=== PATIENT | male | born 1985 | race Caucasian/White ===

== ENCOUNTER 2017-08-02 19:30 | Emergency (ER) | payer BC ==
[~2017-08-02] VITALS: Ht 177.8 cm; Wt 93.2 kg
[2017-08-02 19:37] VITALS: TEMP 96.9
[2017-08-02] MEDS ORDERED: PREDNISONE20 MG PO (21:23)
[2017-08-02 21:30] VITALS: BP 149/90; PULSE 66
== END 2017-08-02 21:36 | disposition home or self-care (01) ==
LOC: COL.ER 19:30
DX: T63.441A Toxic effect of venom of bees, accidental (unintentional), initial encounter (principal); I10 Essential (primary) hypertension
CPT/HCPCS: J0171; J2930

== ENCOUNTER 2021-10-18 02:57 | Emergency (ER) | payer BC ==
[~2021-10-18] VITALS: Ht 177.8 cm; Wt 84.1 kg
[~2021-10-18 02:57] MED LIST: PREDNISONE20 MG PO
[2021-10-18 03:03] VITALS: TEMP 100.2
[2021-10-18 03:22] LABS: BASO # 0.1 K/mm3 (0.0-0.2); BASO % 0.5 % (0.0-2.0); EOS % 0.3 % (0-4.0); GRAN # 8.5 K/mm3 (1.4-6.5); GRAN % 87.1 % (42.2-75.2); HEMATOCRIT 42.2 % (42.0-52.0); HEMOGLOBIN 14.9 g/dl (13.5-18.0); LYMPH # 0.6 K/mm3 (1.2-3.4); LYMPH % 6.2 % (20.0-51.0); MEAN CELL VOLUME 83 fl (80.0-100.0); MEAN CORPUSCULAR HEMOGLOBIN 29 pg (27.0-31.0); MEAN CORPUSCULAR HGB CONC 35 g/dl (33.0-37.0); MEAN PLATELET VOLUME 8.9 fl (7.4-10.4); MONO # 0.5 K/mm3 (0.1-0.6); MONO % 5.6 % (1.7-9.3); PLATELET COUNT 265 K/mm3 (130-400); RED BLOOD COUNT 5.07 M/mm3 (4.20-5.60); REDCELL DISTRIBUTION WIDTH-CV 12.2 % (11.5-14.5)
[2021-10-18 03:55] LABS: ALBUMIN 4.8 gm/dL (3.5-5.0); BILIRUBIN,TOTAL 1.3 mg/dL (0.2-1.2); CALCIUM 10.7 mg/dL (8.4-10.2); CREATININE, serum 1.3 mg/dL (0.72-1.25); POTASSIUM 3.5 mmol/L (3.5-4.5); TOTAL PROTEIN 8.5 gm/dL (6.2-8.1)
[2021-10-18] MEDS ORDERED: ZESTORETIC 12.51 TA1 PO (04:22)
[2021-10-18] MEDS ORDERED: ZYRTEC 10MG10 MG PO (04:23)
[2021-10-18] MEDS ORDERED: ZOFRAN ODT4 MG PO (05:49)
[2021-10-18 05:56] VITALS: BP 120/74; PULSE 72
== END 2021-10-18 05:56 | disposition home or self-care (01) ==
LOC: COL.ER 02:57
PROVIDERS: Student in an Organized Health Care Education/Training Program
DX: A05.9 Bacterial foodborne intoxication, unspecified (principal); I10 Essential (primary) hypertension; Z79.899 Other long term (current) drug therapy
CPT/HCPCS: J2060; J2405; J7030